=== PATIENT | male | born 1990 | race Caucasian/White ===

== ENCOUNTER 2019-05-03 20:12 | Emergency (ER) | payer MEDICAID, OTHER ==
[2019-05-03] MEDS ORDERED: PREDNISONE 20 MG TAB PO ONE (20:31)
[2019-05-03] MEDS ORDERED: PREDNISONE 20 MG TAB ONE (20:36)
[2019-05-03 20:37] VITALS: TEMP 97.3
[2019-05-03 20:54] VITALS: BP 121/81; PULSE 78; RESP 18; O2SAT 98
== END 2019-05-03 20:50 | disposition home or self-care (01) | DRG 918 ==
LOC: ED 20:12
DX: T63.441A Toxic effect of venom of bees, accidental (unintentional), initial encounter (principal); T78.40XA Allergy, unspecified, initial encounter
CPT/HCPCS: 99282; 99283; A9270-GY